=== PATIENT | female | born 1985 | race Caucasian/White ===

== ENCOUNTER 2016-08-29 16:14 | Emergency (ER) | payer MEDICAID ==
[~2016-08-29] VITALS: Ht 160 cm; Wt 58.0 kg
[~2016-08-29 16:14] MED LIST: AUGM875T PO
[2016-08-29 16:39] VITALS: BP 96/67; PULSE 78; RESP 16; TEMP 98.1; O2SAT 99
[2016-08-30] MEDS ORDERED: AMOX875T PO (16:06)
== END 2016-08-29 18:10 | disposition left against medical advice (07) ==
LOC: PHED 16:14
DX: R68.89 Other general symptoms and signs (principal)
CPT/HCPCS: 99281

== ENCOUNTER 2016-08-30 15:20 | Emergency (ER) | payer MEDICAID ==
[~2016-08-30] VITALS: Ht 154.9 cm; Wt 57.2 kg
[2016-08-30 15:26] VITALS: BP 109/74; PULSE 81; RESP 16; TEMP 98.3; O2SAT 100
--- NOTE | 2016-08-30 16:01 | PD ---
HPI . sinus infection x 2 weeks Chief Complaint: Cold / Flu Symptoms Time Seen by Provider: 16:01 Travel History International Travel<30 days: No Contact w/Intl Traveler<30days: No Traveled to known affect area: No History of Present Illness HPI 31-year-old female here with complaints of a sinus infection for 2 weeks. Patient says she gets these frequently and she knows exactly what she needs. She is reporting maxillary sinus tenderness, head congestion and pressure. She denies any fever or chills. She requests amoxicillin, and tells me this is the only thing she tolerates it does not have an allergy to this medication. PFSH Past Medical History Diminished Hearing: No Immunizations Current: Yes Tetanus Vaccination: > 5 Years Influenza Vaccination: No ?: Not LMP: 1 WEEK AGO Social History Alcohol Use: Yes (SOCIALLY) Tobacco Use: Yes (social) Substance Use: No Allergies-Medications (Allergen,Severity, Reaction): Coded Allergies: Augmentin (Verified Allergy, Severe, Nausea/Vomiting, 08/30/16) Keflex (Verified Allergy, Severe, Headache, 08/30/16) Reported Meds & Prescriptions Reported Meds & Active Scripts Active No Active Prescriptions or Reported Medications Review of Systems General / Constitutional: No: Fever Eyes: No: Visual changes HENT: Positive: Congestion, No: Headaches, Rhinorrhea Cardiovascular: No: Chest Pain or Discomfort Respiratory: No: Shortness of Breath Gastrointestinal: No: Abdominal Pain Genitourinary: No: Dysuria Musculoskeletal: No: Pain Skin: No Rash Neurologic: No: Weakness Psychiatric: No: Depression Endocrine: No: Polydipsia Hematologic/Lymphatic: No: Easy Bruising Physical Exam Narrative GENERAL: AAO x 3, no acute distress, Well-nourished, well-developed patient. SKIN: Warm and dry. No visible rashes or bruising. HEAD: Normocephalic and atraumatic. EYES: No scleral icterus. No injection or drainage. ENT: No nasal drainage noted. Mucous membranes pink. Airway patent. Maxillary sinus tenderness, postnasal drip, TMs with fluid, no bulging or erythema NECK: Supple, trachea midline. No JVD. CARDIOVASCULAR: Regular rate and rhythm without murmurs, gallops, or rubs. RESPIRATORY: Breath sounds equal bilaterally. No accessory muscle use. No rhonchi or rales. GASTROINTESTINAL: Abdomen soft, non-tender, nondistended. EXTREMITIES: No cyanosis or edema. BACK: Nontender without obvious deformity. No CVA tenderness. PSYCH: AAO x 3, normal affect. Data Data Last Documented VS Vital Signs Date Time Temp Pulse Resp B/P Pulse Ox O2 Delivery O2 Flow Rate FiO2 08/30/16 15:26 98.3 81 16 109/74 100 MDM Medical Decision Making Medical Screen Exam Complete: Yes Emergency Medical Condition: Yes Medical Record Reviewed: Yes Differential Diagnosis Acute sinusitis, less likely pharyngitis, less likely pneumonia Narrative Course 31-year-old female here with complaints of a sinus infection for 2 weeks. Patient says she gets these frequently and she knows exactly what she needs. She is reporting maxillary sinus tenderness, head congestion and pressure. She denies any fever or chills. She requests amoxicillin, and tells me this is the only thing she tolerates it does not have an allergy to this medication. Patient seen and examined. She does have acute sinusitis. Recommend amoxicillin per her request. Advised that she will need to see her primary care doctor she may need to consider some type of medication such as Flonase or Singulair. Patient verbalized understanding of instructions, questions were answered, and thanked me for their care. I advised them if their condition worsens, please return to the nearest emergency room for further care. Diagnosis Primary Impression: Sinusitis Qualified Code: J01.01 - Acute recurrent maxillary sinusitis Patient Instructions: General Instructions, Sinusitis (ED) Additional Instructions: Please return to emergency department if your symptoms return or worsen. Follow up with your primary care provider. Take medications as prescribed. Med/Other Pt SpecificInfo: Prescription(s) given Scripts Amoxicillin 875 Mg [id number] Mg PO BID #20 TAB Ref 0 Prov:Elvira Gonzalez DO 08/30/16 Disposition: 01 DISCHARGE HOME Condition: Stable Jackie Montanez Aug 30, 2016 16:01
[2016-08-30] MEDS ORDERED: AMOX875T PO (16:06)
== END 2016-08-30 16:17 | disposition home or self-care (01) ==
LOC: PHEFT 15:20
DX: J32.9 Chronic sinusitis, unspecified (principal); Z72.0 Tobacco use
CPT/HCPCS: 99283

== ENCOUNTER 2016-12-01 16:22 | Emergency (ER) | payer MEDICAID ==
[~2016-12-01] VITALS: Ht 154.9 cm; Wt 60.0 kg
[~2016-12-01 16:22] MED LIST changes: +AMOX875T PO; -AUGM875T PO
[2016-12-01 16:37] VITALS: BP 109/78; PULSE 93; RESP 15; TEMP 98.6; O2SAT 99
[2016-12-01] MEDS ORDERED: BUSP1TAB PO (17:06)
--- NOTE | 2016-12-01 17:06 | PD ---
HPI Chief Complaint: Anxiety Time Seen by Provider: 16:52 Travel History International Travel<30 days: No Contact w/Intl Traveler<30days: No Traveled to known affect area: No History of Present Illness HPI This 31-year-old female has been having panic attacks recently. She has a history of anxiety disorder and gets frequent panic attacks. She has been under an extraordinary amount of stress in her life last few months. She has had panic attacks in the past and was on [place] previously. She says it seemed to help. She does not wish to take anything like Ativan or Xanax. PFSH Past Medical History Anxiety: Yes Diminished Hearing: No Immunizations Current: Yes Influenza Vaccination: Yes ?: Not LMP: 11/21/2016 Past Surgical History Surgical History: No Previous Surgery Social History Alcohol Use: Yes (SOCIALLY) Tobacco Use: Yes (social) Substance Use: No Allergies-Medications (Allergen,Severity, Reaction): Coded Allergies: Augmentin (Verified Allergy, Severe, Nausea/Vomiting, 12/01/16) Keflex (Verified Allergy, Severe, Headache, 12/01/16) Reported Meds & Prescriptions Reported Meds & Active Scripts Active No Active Prescriptions or Reported Medications Review of Systems General / Constitutional: No: Fever, Chills Eyes: No: Diploplia HENT: No: Headaches Cardiovascular: Positive: Palpitations, No: Chest Pain or Discomfort Respiratory: No: Cough Genitourinary: No: Urgency Physical Exam Narrative GENERAL: [-] SKIN: Focused skin assessment warm/dry. HEAD: Atraumatic. Normocephalic. EYES: Pupils equal and round. No scleral icterus. No injection or drainage. ENT: No nasal bleeding or discharge. Mucous membranes pink and moist. NECK: Trachea midline. No JVD. CARDIOVASCULAR: Regular rate and rhythm. No murmur appreciated. RESPIRATORY: No accessory muscle use. Clear to auscultation. Breath sounds equal bilaterally. MUSCULOSKELETAL: No obvious deformities. No clubbing. No cyanosis. No edema. NEUROLOGICAL: Awake and alert. No obvious cranial nerve deficits. Motor grossly within normal limits. Normal speech. PSYCHIATRIC: Appropriate mood and affect; insight and judgment normal. Data Data Last Documented VS Vital Signs Date Time Temp Pulse Resp B/P Pulse Ox O2 Delivery O2 Flow Rate FiO2 12/01/16 16:37 98.6 93 15 109/78 99 MDM Medical Decision Making Medical Screen Exam Complete: Yes Emergency Medical Condition: Yes Medical Record Reviewed: Yes Differential Diagnosis Differential includes panic disorder, anxiety, Narrative Course Patient has typical panic attacks. She has had good results with BuSpar in the past and I'll prescribe 0.5 twice a day. She has an appointment next month with her own doctor Diagnosis Primary Impression: Panic disorder Scripts Buspirone 7.5 Mg Tab7.5 Mg PO BID 30 Days Ref 0 Prov:Jose Alvarez MD 12/01/16 Disposition: 01 DISCHARGE HOME Condition: Stable Jose Alvarez MD Dec 01, 2016 17:06
== END 2016-12-01 17:16 | disposition home or self-care (01) ==
LOC: PHED 16:22
DX: F41.0 Panic disorder [episodic paroxysmal anxiety] (principal); Z72.0 Tobacco use; Z86.59 Personal history of other mental and behavioral disorders
CPT/HCPCS: 99283

== ENCOUNTER 2017-02-03 14:03 | Emergency (ER) | payer MEDICAID ==
[~2017-02-03] VITALS: Ht 162.6 cm; Wt 59.3 kg
[~2017-02-03 14:03] MED LIST changes: -AMOX875T PO; +BUSP1TAB PO
[2017-02-03 14:06] VITALS: BP 122/66; PULSE 103; RESP 18; TEMP 98.3; O2SAT 99
[2017-02-03] MEDS ORDERED: AMOX875T PO (14:48)
--- NOTE | 2017-02-03 14:48 | PD ---
HPI Chief Complaint: ENT Complaint Time Seen by Provider: 14:29 Travel History International Travel<30 days: No Contact w/Intl Traveler<30days: No Traveled to known affect area: No History of Present Illness HPI 31-year-old female presents to the emergency room for evaluation of sinus pressure, pain, congestion, sore throat, and bilateral ear pain for the past 7 days. Patient states she feels as though her symptoms are just getting worse. She has recently developed body aches and feels like she has "a mild flu." Denies fever, chills, nausea, and vomiting. She has been taking over-the- counter Mucinex and Advil sinus without relief in symptoms. She has not followed up with her primary care physician. No chronic medical conditions. Patient states last time she was given Augmentin and it was difficult on her stomach. PFSH Past Medical History Medical History: Denies Significant Hx Anxiety: Yes Diminished Hearing: No Immunizations Current: Yes ?: Not LMP: THREE WEEKS AGO Past Surgical History Surgical History: No Previous Surgery Social History Alcohol Use: Yes ("SOCIALLY") Tobacco Use: Yes (1/2PPD) Substance Use: No Allergies-Medications (Allergen,Severity, Reaction): Coded Allergies: amoxicillin (Unverified Allergy, Severe, Nausea/Vomiting, 02/03/17) cephalexin (Unverified Allergy, Severe, Headache, 02/03/17) clavulanic acid (Unverified Allergy, Severe, Nausea/Vomiting, 02/03/17) Reported Meds & Prescriptions Reported Meds & Active Scripts Active Amoxicillin 875 Mg Tab 875 Mg PO BID 7 Days Review of Systems Except as stated in HPI: all other systems reviewed are Neg Physical Exam Narrative GENERAL: Well-developed, well-nourished female in no acute distress. Afebrile. Ambulatory. SKIN: Focused skin assessment warm/dry. HEAD: Atraumatic. Normocephalic. EYES: Pupils equal and round. No scleral icterus. No injection or drainage. ENT: Mucosa pink and moist. Very mild erythema without exudates. No uvular edema. No uvular, palatal, or tonsillar deviation. Airway patent. Nasal turbinates appear normal without nasal blood, purulent drainage or septal hematoma. EARS: Bilateral pinnae and external canals appear within normal limits. Bilateral tympanic membranes without erythema, dullness or perforation. NECK: Trachea midline. No JVD. CARDIOVASCULAR: Regular rate and rhythm. No murmur appreciated. RESPIRATORY: No accessory muscle use. Clear to auscultation. Breath sounds equal bilaterally. No crackles, rales, wheezes, or rhonchi. NEUROLOGICAL: Awake and alert. No obvious cranial nerve deficits. Motor grossly within normal limits. Normal speech. PSYCHIATRIC: Appropriate mood and affect; insight and judgment normal. Data Data Last Documented VS Vital Signs Date Time Temp Pulse Resp B/P (MAP) Pulse Ox O2 Delivery O2 Flow Rate FiO2 02/03/17 14:06 98.3 103 18 122/66 (84) 99 MDM Medical Decision Making Medical Screen Exam Complete: Yes Emergency Medical Condition: Yes Medical Record Reviewed: Yes Differential Diagnosis Sinusitis, upper respiratory infection, viral infection Narrative Course 31-year-old female presents to the emergency room requesting antibiotics for sinus infection. She has been sick for 8 days. She denies fever, chills, nausea, and vomiting. States she gets sick every few months and need antibiotics. Patient has been here multiple times in the past several months and received prescription for amoxicillin every time. She was lectured extensively on the concern for resistance for chronic antibiotic use and how antibiotics are not effective for viral illnesses. I believe she has chronic sinusitis. She was told to follow-up with an ear, nose, throat doctor if she has chronic sinusitis for more permanent solution. Patient is cantankerous. She was discharged with prescription and given strict instructions on when to start medication. Told to return for worsening symptoms. Diagnosis Primary Impression: Sinusitis Qualified Codes: J32.0 - Chronic maxillary sinusitis Referrals: Primary Care Physician Additional Instructions: This is likely viral and antibiotics will not be effective. Receiving antibiotics too many times causes resistance it is bad for your health. If symptoms persist for 5 more days or if you develop fevers, take Amoxicillin as directed. Take ibuprofen with food as directed, as needed for pain. Follow-up with an ear, nose, throat doctor for chronic sinus infections. Scripts Amoxicillin (Amoxicillin) 875 Mg Tab 875 MG PO BID for Infection for 7 Days, TAB 0 Refills Prov: Mita Rapp MD 02/03/17 Disposition: 01 DISCHARGE HOME Condition: Stable Johanna Harrell Feb 03, 2017 14:48
== END 2017-02-03 14:54 | disposition home or self-care (01) ==
LOC: PHEFT 14:03
DX: J32.0 Chronic maxillary sinusitis (principal); F17.200 Nicotine dependence, unspecified, uncomplicated
CPT/HCPCS: 99283

== ENCOUNTER 2017-04-11 09:51 | Emergency (ER) | payer MEDICAID ==
[~2017-04-11] VITALS: Ht 162.6 cm; Wt 59.0 kg
[~2017-04-11 09:51] MED LIST changes: +AMOX875T PO; -BUSP1TAB PO
[2017-04-11 10:00] VITALS: BP 130/81; PULSE 88; RESP 16; TEMP 98.2; O2SAT 100
[2017-04-11 10:15] LABS: BLOOD, URINE NEG (NEG); GLUCOSE,URINE NEG (NEG); KETONE, URINE NEG (NEG); NITRITE,URINE NEG (NEG)
[2017-04-11 10:22] LABS: METHOD OF COLLECTION CLEAN CATCH; URINE COLOR YELLOW (YELLW/STRAW)
[2017-04-11 10:23] LABS: RBC, URINE 0-3 /hpf (0-3); SQUAMOUS EPITHELIAL CELL URINE 0-5 /hpf (0-5)
[2017-04-11 10:24] LABS: COMMENT (UR) CULT NOT INDICATED; CULTURE IF INDICATED CULT NOT INDICATED
[2017-04-11] MEDS ORDERED: METR-1 PO (11:33)
--- NOTE | 2017-04-11 11:34 | PD ---
HPI Chief Complaint: Complaint Time Seen by Provider: 11:02 Travel History International Travel<30 days: No Contact w/Intl Traveler<30days: No Traveled to known affect area: No History of Present Illness HPI The patient is a 31-year-old female who presents to the emergency department for lower abdominal pressure with mild urgency and frequency. The patient denies any actual dysuria, however, complains of pelvic pressure that is over the bladder region. She now complains of pain in the left flank/left lower quadrant. The patient states initially she has some thick white vaginal discharge which has improved over the course of the week. The patient's last menstrual cycle was one to 2 weeks ago, she denies . She denies any visible blood in the urine. The pain is located over the pelvic region and radiates to the back. She denies any associated fever, chills, or sweats. She denies any associated nausea or vomiting. Symptoms are mild, there are currently no alleviating or exacerbating factors. PFSH Past Medical History Medical History: Denies Significant Hx Anxiety: Yes Diminished Hearing: No Immunizations Current: Yes Tetanus Vaccination: > 5 Years Influenza Vaccination: Yes ?: Not LMP: 2 WEEKS Past Surgical History Surgical History: No Previous Surgery Social History Alcohol Use: Yes ("SOCIALLY") Tobacco Use: Yes (1/2PPD) Substance Use: No Allergies-Medications (Allergen,Severity, Reaction): Coded Allergies: amoxicillin (Unverified Allergy, Severe, Nausea/Vomiting, 04/11/17) cephalexin (Unverified Allergy, Severe, Headache, 04/11/17) clavulanic acid (Unverified Allergy, Severe, Nausea/Vomiting, 04/11/17) Reported Meds & Prescriptions Reported Meds & Active Scripts Active No Active Prescriptions or Reported Medications Review of Systems Except as stated in HPI: all other systems reviewed are Neg General / Constitutional: No: Fever Gastrointestinal: No: Nausea, Vomiting, Abdominal Pain Genitourinary: Positive: Urgency, Frequency, Pelvic Pain, Discharge, No: Dysuria, Hematuria, Vaginal Bleeding Skin: Positive Itching, No Rash Physical Exam Narrative GENERAL: Awake, alert, pleasant 31-year-old female who appears her stated age and is in no acute respiratory distress. SKIN: Focused skin assessment warm/dry. HEAD: Atraumatic. Normocephalic. GASTROINTESTINAL: Abdomen soft, mild suprapubic tenderness. Back: No CVA tenderness. Pelvic: Deferred by patient. MUSCULOSKELETAL: No obvious deformities. No clubbing. No cyanosis. No edema. NEUROLOGICAL: Awake and alert. No obvious cranial nerve deficits. Motor grossly within normal limits. Normal speech. PSYCHIATRIC: Appropriate mood and affect; insight and judgment normal. Data Data Last Documented VS Vital Signs Date Time Temp Pulse Resp B/P (MAP) Pulse Ox O2 Delivery O2 Flow Rate FiO2 04/11/17 10:00 98.2 88 16 130/81 (97) 100 Orders Orders Urinalysis - C+S If Indicated (04/11/17 10:06) Ed Urine Pregnancytest Poc (04/11/17 10:06) Gc And Chlamydia Pcr (04/11/17 11:21) Wet Prep Profile (04/11/17 11:21) Labs Laboratory Tests Test 04/11/17 10:03 Urine Collection Type CLEAN CATCH Urine Color YELLOW Urine Turbidity CLEAR Urine pH 7.0 Urine Specific [place] 1.013 Urine Protein NEG mg/dL Urine Glucose (UA) NEG mg/dL Urine Ketones NEG mg/dL Urine Occult Blood NEG Urine Nitrite NEG Urine Bilirubin NEG Urine Leukocyte Esterase SMALL Urine RBC 0-3 /hpf Urine WBC 3-5 /hpf Urine Squamous Epithelial Cells 0-5 /hpf Urine Trichomonas FEW Microscopic Urinalysis Comment CULT NOT INDICATED Urine Collection Time 10:03 [facility] Medical Decision Making Medical Screen Exam Complete: Yes Emergency Medical Condition: Yes Medical Record Reviewed: Yes Differential Diagnosis differential diagnosis includes UTI, PID, cervicitis, vaginitis, yeast infection , Trichomonas, bacterial vaginosis, ectopic . Narrative Course A bedside UA test was obtained, was negative. UA was negative except for a few Trichomonas. I do discussion with the patient regarding a pelvic exam , she would prefer not to have a pelvic exam secondary to extreme discomfort when they are performed with a speculum. As the patient does have Trichomonas on UA, I believe it's reasonable to treat for Trichomonas causing vaginitis/ cervicitis. The patient will be treated with Flagyl 500 mg twice a day for one week. She is advised to have her sexual partner treated as well. She is advised to follow-up with the [facility]. Return as necessary. Diagnosis Primary Impression: Trichomonas infection Patient Instructions: General Instructions Additional Instructions: Flagyl as directed. Follow-up with her primary physician. Fall with the [facility]. Have your sexual partner follow-up for possible treatment. Med/Other Pt SpecificInfo: Prescription(s) given Scripts Metronidazole (Flagyl) 500 Mg Tab 500 MG PO BID for Infection for 7 Days, #14 TAB 0 Refills Prov: Gio Ma MD 04/11/17 Disposition: 01 DISCHARGE HOME Condition: Stable Gio Ma MD Apr 11, 2017 11:33
[2017-04-12 12:11] LABS: CHLAMYDIA PCR NOT DETECTED (NOT DETECT); NEISSERIA PCR NOT DETECTED (NOT DETECT)
== END 2017-04-11 11:43 | disposition home or self-care (01) ==
LOC: PHED 09:51
DX: A59.9 Trichomoniasis, unspecified (principal); F17.200 Nicotine dependence, unspecified, uncomplicated
CPT/HCPCS: 81001; 84703; 87491; 87591; 99283

== ENCOUNTER 2017-04-25 18:12 | Emergency (ER) | payer MEDICAID ==
[~2017-04-25] VITALS: Ht 162.6 cm; Wt 58.0 kg
[~2017-04-25 18:12] MED LIST changes: -AMOX875T PO; +METR-1 PO
[2017-04-25 18:18] VITALS: BP 126/77; PULSE 91; RESP 16; TEMP 98.3; O2SAT 99
--- NOTE | 2017-04-25 18:45 | PD ---
HPI Chief Complaint: Complaint Time Seen by Provider: 18:23 Travel History International Travel<30 days: No Contact w/Intl Traveler<30days: No Traveled to known affect area: No History of Present Illness HPI This is a 31-year-old female who presents to the emergency department with 2 days of fullness in her bladder, pressure, urgency and some urinary frequency, constant, mild. She denies any fevers or chills. She denies any vomiting. She recently completed treatment for Trichomonas with 500 mg of Flagyl twice a day for 7 days. She denies any vaginal discharge but she is on her menstrual cycle. She has not had intercourse since her treatment. PFSH Past Medical History Anxiety: Yes Diminished Hearing: No Immunizations Current: Yes Influenza Vaccination: No ?: Not LMP: NOW Social History Alcohol Use: Yes ("SOCIALLY") Tobacco Use: Yes (1/2PPD) Substance Use: No Allergies-Medications (Allergen,Severity, Reaction): Coded Allergies: amoxicillin (Unverified Allergy, Severe, Nausea/Vomiting, 04/25/17) cephalexin (Unverified Allergy, Severe, Headache, 04/25/17) clavulanic acid (Unverified Allergy, Severe, Nausea/Vomiting, 04/25/17) Reported Meds & Prescriptions Reported Meds & Active Scripts Active Flagyl (Metronidazole) 500 Mg Tab 500 Mg PO BID 7 Days Review of Systems Except as stated in HPI: all other systems reviewed are Neg Physical Exam Narrative GENERAL:Well appearing, no acute distress SKIN: Focused skin assessment warm and dry. HEAD: Atraumatic. Normocephalic. EYES: Pupils equal and round. No injection or drainage. ENT: Moist mucous membranes NECK: Trachea midline. CARDIOVASCULAR: Regular rate and rhythm. No murmur appreciated. RESPIRATORY: Clear to auscultation. Breath sounds equal bilaterally. GASTROINTESTINAL: Abdomen soft, non-tender, nondistended. MUSCULOSKELETAL: No obvious deformities. NEUROLOGICAL: Awake and alert. No obvious cranial nerve deficits. Moving all extremities. PSYCHIATRIC: Appropriate mood and affect; insight and judgment normal. Data Data Last Documented VS Vital Signs Date Time Temp Pulse Resp B/P (MAP) Pulse Ox O2 Delivery O2 Flow Rate FiO2 04/25/17 18:18 98.3 91 16 126/77 (93) 99 Orders Orders Urinalysis - C+S If Indicated (04/25/17 18:36) Labs Laboratory Tests Test 04/25/17 18:40 Urine Color STRAW Urine Turbidity CLEAR Urine pH 6.0 Urine Specific [place] 1.009 Urine Protein NEG mg/dL Urine Glucose (UA) NEG mg/dL Urine Ketones NEG mg/dL Urine Occult Blood NEG Urine Nitrite NEG Urine Bilirubin NEG Urine Leukocyte Esterase NEG Urine RBC 0-3 /hpf Urine WBC 0-2 /hpf Urine Squamous Epithelial Cells 0-5 /hpf Microscopic Urinalysis Comment CULT NOT INDICATED MDM Medical Decision Making Medical Screen Exam Complete: Yes Emergency Medical Condition: Yes Differential Diagnosis Urinary tract infection, Trichomonas, cervicitis Narrative Course This is a 31-year-old female who presents to the emergency department with urinary urgency in the setting of a recent diagnosis of Trichomonas. She completed 7 days of 500 twice a day of Flagyl but she still feels like she has symptoms. Both her gonorrhea and chlamydia cultures were negative. She no longer complains of any vaginal discharge. I suspect she may have incompletely treated Trichomonas. Urinalysis is reassuring. Patient was given 2 g of Flagyl here in the emergency department and given a referral to follow-up with [facility] Diagnosis Primary Impression: Trichomonas vaginitis Patient Instructions: General Instructions Additional Instructions: If you develop fever, chills, severe abdominal pain, persistent vomiting or inability to eat return to the emergency department. Your pelvic exam today did not include a Pap smear. It is important to followup with a province archivist on a yearly basis to be tested for cervical cancer as we do not do that from the emergency department. If there is a concern that you have sexually transmitted disease, your partner should be tested. You should followup with your province archivist or with the health department to get tested for other sexually transmitted diseases like HIV and syphilis, as we do not test for these in the emergency department Med/Other Pt SpecificInfo: Prescription(s) given Disposition: DISCHARGE HOME Condition: Stable Chelita Campuzano MD Apr 25, 2017 18:45
[2017-04-25 18:46] LABS: BLOOD, URINE NEG (NEG); GLUCOSE,URINE NEG (NEG); KETONE, URINE NEG (NEG); NITRITE,URINE NEG (NEG)
[2017-04-25 19:11] LABS: URINE COLOR STRAW (YELLW/STRAW)
[2017-04-25 19:12] LABS: COMMENT (UR) CULT NOT INDICATED; CULTURE IF INDICATED CULT NOT INDICATED; RBC, URINE 0-3 /hpf (0-3); SQUAMOUS EPITHELIAL CELL URINE 0-5 /hpf (0-5); WBC, URINE 0-2 /hpf (0-5)
[2017-04-25] MEDS ORDERED: metroNIDAZOLE 500 MG TAB PO ONE (19:30)
[2017-04-25 19:35] VITALS: BP 105/76
== END 2017-04-25 19:40 | disposition home or self-care (01) ==
LOC: PHED 18:12
DX: A59.01 Trichomonal vulvovaginitis (principal); F17.200 Nicotine dependence, unspecified, uncomplicated
CPT/HCPCS: 81001; 99284

== ENCOUNTER 2017-05-02 20:40 | Emergency (ER) | payer MEDICAID ==
[~2017-05-02] VITALS: Ht 154.9 cm; Wt 57.6 kg
[2017-05-02 20:42] VITALS: BP 139/87; PULSE 118; RESP 18; TEMP 98.4; O2SAT 100
--- NOTE | 2017-05-02 21:15 | PD ---
HPI Chief Complaint: Complaint Time Seen by Provider: 21:12 Travel History International Travel<30 days: No Contact w/Intl Traveler<30days: No Traveled to known affect area: No History of Present Illness HPI The patient is a 31-year-old female, G5, P4, A1 which was elective who states she has not been sexually active in months who came in about 3 weeks ago and was found to have Trichomonas in her urine. She was treated with 7 days of Flagyl, 500 mg 3 times daily. Her urinary symptoms came back and she was treated with 2 g of Flagyl by mouth. This made her nauseated and she still has some slight nausea from that. She complains of dysuria, frequency, urgency and left flank pain. She denies any fever. She never drank alcohol with Flagyl. [facility] Past Medical History Anxiety: Yes Diminished Hearing: No Immunizations Current: Yes ?: Not LMP: last week [place] Social History Alcohol Use: Yes ("SOCIALLY") Tobacco Use: Yes (1/2PPD) Substance Use: No Allergies-Medications (Allergen,Severity, Reaction): Coded Allergies: amoxicillin (Verified Allergy, Severe, Nausea/Vomiting, 05/02/17) cephalexin (Unverified Allergy, Severe, Headache, 05/02/17) Reported Meds & Prescriptions Reported Meds & Active Scripts Active No Active Prescriptions or Reported Medications Review of Systems Except as stated in HPI: all other systems reviewed are Neg Physical Exam Narrative GENERAL: The patient is alert, anxious, oriented 3 in minimal apparent distress with her urinary symptoms. Her vital signs show heart rate of 118 but otherwise normal. SKIN: Focused skin assessment warm/dry. HEAD: Atraumatic. Normocephalic. EYES: Pupils equal and round. No scleral icterus. No injection or drainage. ENT: No nasal bleeding or discharge. Mucous membranes pink and moist. NECK: Trachea midline. No JVD. CARDIOVASCULAR: Regular rate and rhythm. No murmur appreciated. RESPIRATORY: No accessory muscle use. Clear to auscultation. Breath sounds equal bilaterally. GASTROINTESTINAL: Abdomen soft, with tenderness to direct palpation in the midline suprapubic area and left flank, nondistended. Hepatic and splenic margins not palpable. No guarding or rebound is present. MUSCULOSKELETAL: No obvious deformities. No clubbing. No cyanosis. No edema. NEUROLOGICAL: Awake and alert. No obvious cranial nerve deficits. Motor grossly within normal limits. Normal speech. PSYCHIATRIC: Appropriate mood and affect; insight and judgment normal. GENITOURINARY: Normal external genitalia without lesions or erythema. Vaginal vault without blood but there is a pure white, [id number] drainage. Cervical os was closed with clear drainage. No cervical motion tenderness. Uterus nontender and nonenlarged. Bilateral adnexa nontender without masses. The bladder does appear to be tender. Data Data Last Documented VS Vital Signs Date Time Temp Pulse Resp B/P (MAP) Pulse Ox O2 Delivery O2 Flow Rate FiO2 05/02/17 21:16 100 18 05/02/17 20:42 98.4 139/87 (104) 100 Orders Orders Urinalysis - C+S If Indicated (05/02/17 21:27) Wet Prep Profile (05/02/17 21:27) Gc And Chlamydia Pcr (05/02/17 21:27) Ed Urine Pregnancytest Poc (05/02/17 21:27) Labs Laboratory Tests Test 05/02/17 21:25 Urine Color YELLOW Urine Turbidity CLEAR Urine pH 6.0 Urine Specific [place] 1.010 Urine Protein NEG mg/dL Urine Glucose (UA) NEG mg/dL Urine Ketones TRACE mg/dL Urine Occult Blood TRACE Urine Nitrite NEG Urine Bilirubin NEG Urine Leukocyte Esterase NEG Urine RBC 0-3 /hpf Urine WBC 0-2 /hpf Urine Squamous Epithelial Cells 0-5 /hpf Microscopic Urinalysis Comment CULT NOT INDICATED Clue Cells (Wet Prep) NONE SEEN Vaginal Trichomonas (Wet Prep) NONE SEEN Vaginal Yeast (Wet Prep) NONE SEEN MDM Medical Decision Making Medical Screen Exam Complete: Yes Emergency Medical Condition: Yes Medical Record Reviewed: Yes Interpretation(s) The urinalysis is normal except trace ketones and trace occult blood. The wet prep is negative for clue cells, Trichomonas and yeast. Differential Diagnosis Interstitial cystitis, cystitis, pyelonephritis, Trichomonas vaginitis, yeast vaginitis Narrative Course The patient has a normal urine and negative wet prep. She has multiple symptoms of cystitis and flank pain. She does have anxiety and readily admits to having anxiety. It is possible she could have something like interstitial cystitis. We will try her on a regular antibiotic, Macrobid, and try her on Diflucan, 200 mg single dose to be taken after she completes the Macrobid and Pyridium. She is to follow-up with a primary care physician follow this. Diagnosis Primary Impression: Cystitis Additional Instructions: After you complete the antibiotic, Macrobid, take the Diflucan. It is a single dose tablet. I gave you two because you may need a second dose if you still have some symptoms. Follow-up with a primary care physician. Med/Other Pt SpecificInfo: Prescription(s) given Scripts Nitrofurantoin Monohydrate Macrocrystals (Macrobid) 100 Mg Capsule 100 MG PO BID for Infection for 10 Days, #20 CAP 0 Refills Prov: Kip Conway MD 05/02/17 Phenazopyridine (Pyridium) 100 Mg Tab 100 MG PO Q8H Y for DYSURIA, #30 TAB 0 Refills Prov: Kip Conway MD 05/02/17 Fluconazole (Diflucan) 200 Mg Tab 200 MG PO DAILY for Infection, #2 TAB 0 Refills Prov: Kip Conway MD 05/02/17 Disposition: 01 DISCHARGE HOME Condition: Stable Kip Conway MD May 02, 2017 21:15
[2017-05-02 21:43] LABS: GLUCOSE,URINE NEG (NEG); KETONE, URINE TRACE mg/dL (NEG); NITRITE,URINE NEG (NEG)
[2017-05-02 21:46] LABS: BLOOD, URINE TRACE (NEG)
[2017-05-02 21:49] LABS: COMMENT (UR) CULT NOT INDICATED; CULTURE IF INDICATED CULT NOT INDICATED; RBC, URINE 0-3 /hpf (0-3); SQUAMOUS EPITHELIAL CELL URINE 0-5 /hpf (0-5); URINE COLOR YELLOW (YELLW/STRAW); WBC, URINE 0-2 /hpf (0-5)
[2017-05-02] MEDS ORDERED: MACR100C2 PO (22:07)
[2017-05-02] MEDS ORDERED: DIFL200T PO (22:07)
[2017-05-02] MEDS ORDERED: PHEN0.4T PO (22:07)
[2017-05-02 22:25] VITALS: BP 107/70
[2017-05-03 01:08] LABS: CHLAMYDIA PCR NOT DETECTED (NOT DETECT); NEISSERIA PCR NOT DETECTED (NOT DETECT)
== END 2017-05-02 22:27 | disposition home or self-care (01) ==
LOC: PHED 20:40
DX: N30.90 Cystitis, unspecified without hematuria (principal); F41.9 Anxiety disorder, unspecified; F17.210 Nicotine dependence, cigarettes, uncomplicated; Z88.0 Allergy status to penicillin
CPT/HCPCS: 81001; 84703; 87210; 87491; 87591; 99284